=== PATIENT | male | born 1985 | race Two or more races ===

== ENCOUNTER 2021-04-22 06:26 | Emergency (ER) | payer SELFPAY ==
[~2021-04-22] VITALS: Ht 172.7 cm; Wt 90.9 kg
[2021-04-22 06:40] VITALS: BP 140/87
--- NOTE | 2021-04-22 07:12 | PHYS DOC ---
Past Medical History Past Surgical History: No Surgical History General Adult EDM: Chief Complaint: FOOT INJURY PAIN HPI: HPI: Patient is a 36 year old male who present to ER for evaluation of left foot and ankle pain. Patient said he was playing basketball 2 days ago, and he jumped up, he landed on his left foot, twisted, patient has been having pain and swelling since. Patient denies any other injury. Patient denies any knee pain, no hip pain or pelvic pain Review of Systems: Review of Systems: Constitutional: Denies fever or chills. [] Eyes: Denies change in visual acuity. [] HENT: Denies nasal congestion or sore throat. [] Respiratory: Denies cough or shortness of breath. [] Cardiovascular: Denies chest pain or edema. [] GI: Denies abdominal pain, nausea, vomiting, bloody stools or diarrhea. [] : Denies dysuria. [] Musculoskeletal: Positive for left ankle and left foot pain and swelling Integument: Denies rash. [] Neurologic: Denies headache, focal weakness or sensory changes. [] Endocrine: Denies polyuria or polydipsia. [] Lymphatic: Denies swollen glands. [] Psychiatric: Denies depression or anxiety. [] Heart Score: C/O Chest Pain: N/A Risk Factors: Risk Factors: DM, Current or recent (<one month) smoker, HTN, HLP, family history of CAD, obesity. Risk Scores: Score 0 - 3: 2.5% MACE over next 6 weeks - Discharge Home Score 4 - 6: 20.3% MACE over next 6 weeks - Admit for Clinical Observation Score 7 - 10: 72.7% MACE over next 6 weeks - Early Invasive Strategies Allergies: Allergies: Allergies Coded Allergies Type Severity Reaction Last Updated Verified No Known Drug Allergies 04/22/21 No Physical Exam: PE: Constitutional: Well developed, well nourished, no acute distress, non-toxic appearance. [] HENT: Normocephalic, atraumatic, bilateral external ears normal, oropharynx moist, no oral exudates, nose normal. [] Eyes: PERRLA, EOMI, conjunctiva normal, no discharge. [] Neck: Normal range of motion, no tenderness, supple, no stridor. [] Cardiovascular:Heart rate regular rhythm, no murmur [] Lungs & Thorax: Bilateral breath sounds clear to auscultation [] Abdomen: Bowel sounds normal, soft, no tenderness, no masses, no pulsatile masses. [] Skin: Warm, dry, no erythema, no rash. [] Back: No tenderness, no CVA tenderness. [] Extremities:Left ankle and left foot are swollen and tender to palpation. NO OBVIOUS DEFORMITY NOTED. Neurologic: Alert and oriented X 3, normal motor function, normal sensory function, no focal deficits noted. [] Psychologic: Affect normal, judgement normal, mood normal. [] Current Patient Data: Vital Signs: Vital Signs Date Time Temp Pulse Resp B/P (MAP) Pulse Ox O2 Delivery O2 Flow Rate FiO2 04/22/21 06:40 98.1 124 18 140/87 (104) 95 Room Air 98.1 EKG: EKG: [] Radiology/Procedures: Radiology/Procedures: [][facility] [address] [place] [address] IMAGING REPORT Signed PATIENT: KRISTOPHER DUMONT MACCOUNT: [id number] : 1985 LOCATION: ER AGE: 36 SEX: M EXAM STATUS: REG ER ORD. PHYSICIAN: JAIME GARCIA DO REASON: fell, left foot injury, left ankle injury PROCEDURE: ANKLE LEFT 3V 3 views left ankle three-view left foot HISTORY: Fell, foot and ankle injury AP lateral oblique views left foot and ankle AP lateral oblique views Three-view left ankle: The visualized osseous structures appear normal. The tibiotalar relationship is normal. There is soft tissue swelling over the lateral malleolus. IMPRESSION: Soft tissue swelling could be secondary to ligamentous injury. There is no evidence of fracture or dislocation. 3 views left foot: AP lateral oblique views left foot Sclerotic lesion in the medial aspect of the distal fifth metatarsal is likely a bone island. The remaining visualized osseous structures appear normal. IMPRESSION: No acute findings. Electronically signed by: Whitley Aggarwal III, MD (04/22/2021 7:51 AM) [facility] DICTATED and SIGNED BY: WHITLEY AGGARWAL III, MD DATE: 04/22/21 [id number] 0 Course & Med Decision Making: Course & Med Decision Making Pertinent Labs and Imaging studies reviewed. (See chart for details) Patient is a 26-year-old male who present to ER due to left foot and ankle injury after he played basketball 2 days ago. X-ray did not show any acute problem. Examination did not show swelling and tenderness to palpation on his left foot and ankle. A walking boot was applied to his left foot and ankle. Patient will be discharged home, he can walk with a walking boot, he will need to follow-up with orthopedic doctor for outpatient evaluation next week. Dragon Disclaimer: Dragon Disclaimer: This electronic medical record was generated, in whole or in part, using a voice recognition dictation system. Departure Departure Impression: Primary Impression: Sprain of left foot Additional Impression: Left ankle sprain Disposition: 01 HOME / SELF CARE / HOMELESS Condition: STABLE Referrals: NO PCP (PCP) CK HURTADO DO Please call this orthopedic physician for outpatient reevaluation next week if not getting better Patient Instructions: Ankle Sprain, Foot Sprain Additional Instructions: Thank you for visiting our Emergency Department. We appreciate you trusting us with your care. If any additional problems come up don't hesitate to return to visit us. Please follow up with your primary care provider so they can plan additional care if needed and know about the problem that you had. If symptoms worsen come back to the Emergency Department. Any concerning symptoms that start such as chest pain, shortness of air, weakness or numbness on one side of the body, running high fevers or any other concerning symptoms return to the ER. Scripts Naproxen Sodium (ANAPROX DS) 550 Mg Tablet 1 TAB PO BID PRN for PAIN for 15 Days, #30 TAB 0 Refills Prov: JAIME GARCIA DO 04/22/21 JAIME GARCIA DO Apr 22, 2021 07:12
--- NOTE | 2021-04-22 07:53 | RAD ---
3 views left ankle three-view left foot HISTORY: Fell, foot and ankle injury AP lateral oblique views left foot and ankle AP lateral oblique views Three-view left ankle: The visualized osseous structures appear normal. The tibiotalar relationship is normal. There is soft tissue swelling over the lateral malleolus. IMPRESSION: Soft tissue swelling could be secondary to ligamentous injury. There is no evidence of fracture or di slocation. 3 views left foot: AP lateral oblique views left foot Sclerotic lesion in the medial aspect of the distal fifth metatarsal is likely a bone island. The rem aining visualized osseous structures appear normal. IMPRESSION: No acute findings. Electronically signed by: Lukasz Gutiérrez III, MD (04/22/2021 7:51 AM) [facility]
--- NOTE | 2021-04-22 07:53 | RAD ---
3 views left ankle three-view left foot HISTORY: Fell, foot and ankle injury AP lateral oblique views left foot and ankle AP lateral oblique views Three-view left ankle: The visualized osseous structures appear normal. The tibiotalar relationship is normal. There is soft tissue swelling over the lateral malleolus. IMPRESSION: Soft tissue swelling could be secondary to ligamentous injury. There is no evidence of fracture or di slocation. 3 views left foot: AP lateral oblique views left foot Sclerotic lesion in the medial aspect of the distal fifth metatarsal is likely a bone island. The rem aining visualized osseous structures appear normal. IMPRESSION: No acute findings. Electronically signed by: Lukasz Gutiérrez III, MD (04/22/2021 7:51 AM) [facility]
[2021-04-22] MEDS ORDERED: NAPR-682 PO (07:59)
[2021-04-22] MEDS ORDERED: IBUPROFEN 400 MG TABLET. PO ONE (08:15)
[2021-04-22] MEDS ORDERED: HYDROcodone/APAP 5/325MG 1 TAB TABLET PO ONE (08:15)
== END 2021-04-22 08:31 | disposition home or self-care (01) ==
LOC: ER 06:26
DX: S93.602A Unspecified sprain of left foot, initial encounter (principal); S93.402A Sprain of unspecified ligament of left ankle, initial encounter; X50.9XXA Other and unspecified overexertion or strenuous movements or postures, initial encounter; Y93.67 Activity, basketball; Y92.89 Other specified places as the place of occurrence of the external cause; Y99.8 Other external cause status
CPT/HCPCS: 73610; 73630; 99284